=== PATIENT | female | born 1995 | race Two or more races ===

== ENCOUNTER 2024-10-16 19:54 | Emergency (ER) | payer MEDICAID, OTHER ==
[~2024-10-16] VITALS: Ht 149.9 cm; Wt 125.0 kg
--- NOTE | 2024-10-16 20:14 | ED.PDOC ---
Psychiatric HPI Comments 29-year-old female came to ER due to overdose. About 2 hours ago, patient had an argument with her boyfriend and she started drinking 10 buzz balls and snorted about 3 grams of cocaine. She denies being suicidal. States she was just very upset. She does have history of suicide attempt via cutting. Patient currently having abdominal pain with episodes of nausea and vomiting Chief Complaint: Overdose Time Seen by MD: 20:14 Reviewed Notes: Nurses Notes Information Source: Patient Mode of Arrival: Ambulatory Severity: Unable to Care for Self, Unable to Control Self Timing: Hours Duration: Since onset Presents with: Anxiety, Unclear Thinking, Suicidal Ideation Attempt: Ingestion Ingestion: Intentional, Drug(s) Ingested (Cocaine), ETOH Circumstance: Medical Clearance, Causing a Disturbance Current substance abuse: ETOH, Cocaine Stressors: Relationships History of: Suicidal Attempt, Alcoholism Quality: Hopelessness Associated signs and symptoms: Depression, Hopeless, Anxiety, ETOH, Cocaine Past Medical History Past Medical History (Other): Suicide attempt via cutting Surgical History: Denies all surgeries [employer]ATION History: Denies all [employer] Hx Family History Family History: Reviewed,noncontributory to illness Social History Smoker: Non-Smoker Alcohol: Heavy Drugs: Cocaine Lives In: Home Constitutional: denies: chills, diaphoresis, fatigue, fever, malaise, sweats, weakness, others EENTM: denies: blurred vision, double vision, ear bleeding, ear discharge, ear drainage, ear pain, ear ringing, eye pain, eye redness, hearing loss, mouth pain, mouth swelling, nasal discharge, nose bleeding, nose congestion, nose pain, photophobia, tearing, throat pain, throat swelling, voice changes, others Respiratory: denies: cough, hemoptysis, orthopnea, SOB at rest, shortness of breath, SOB with excertion, stridor, wheezing, others Cardiovascular: denies: chest pain, dizzy spells, diaphoresis, Dyspnea on exertion, edema, irregular heart beat, left arm pain, lightheadedness, palpitations, PND, syncope, others Gastrointestinal: reports: abdominal pain, nausea, vomiting; denies: abdomen distended, blood streaked bowels, constipated, diarrhea, dysphagia, difficulty swallowing, hematemesis, melena, poor appetite, poor fluid intake, rectal bleeding, rectal pain, others Genitourinary: denies: abnormal vagina bleeding, burning, dyspareunia, dysuria, flank pain, frequency, hematuria, incontinence, pain, , vagina discharge, urgency, others Neurological: denies: dizziness, fainting, headache, left sided numbness, left sided weakness, numbness, paresthesia, pre-existing deficit, right sided numbness, right sided weakness, seizure, speech problems, tingling, tremors, weakness, others Musculoskeletal: denies: back pain, gout, joint pain, joint swelling, muscle pain, muscle stiffness, neck pain, others Integumetry: denies: bruises, change in color, change in hair/nails, dryness, laceration, lesions, lumps, rash, wounds, others Allergic/Immunocompromised: denies: Difficulty Healing, Frequent Infections, Hives, Itching, others Hematologic/Lymphatic: denies: anemia, blood clots, easy bleeding, easy bruising, swollen glands, others Endocrine: denies: excessive hunger, excessive sweating, excessive thirst, excessive urination, flushing, intolerance to cold, intolerance to heat, unexplained weight gain, unexplained weight loss, others Psychiatric: reports: anxiety; denies: bipolar disorder, depression, hopeless, panic disorder, schizophrenia, sleepless, suicidal, others Physical Exam General Appearance: No Apparent Distress, Normal HEENT: Normal ENT Inspection, Pharynx Normal, TMs Normal Neck: Full Range of Motion, Non-Tender, Normal, Normal Inspection Respiratory: Chest Non-Tender, Lungs Clear, No Accessory Muscle Use, No Re spiratory Distress, Normal Breath Sounds Cardiovascular: No Edema, No JVD, No Murmur, No Gallop, Normal Peripheral Pulses, Regular Rate/Rhythm Breast Exam: Deferred Gastrointestinal: No Organomegaly, Non Tender, No Pulsatile Mass, Normal Bowel Sounds, Soft Genitalia: Deferred Pelvic: Deferred Rectal: Deferred Extremities: No calf tenderness, Normal capillary refill, Normal inspection, Normal range of motion, Non-tender, No pedal edema Musculoskeletal : Apperance: Normal Neurologic: Alert, gym teacher II-XII nml as Tested, No Motor Deficits, Normal Affect, Normal Mood, No Sensory Deficits Cerebellar Function: Normal Reflexes: Normal Skin: Dry, Normal Color, Warm Lymphatic: No Adenopathy Was a procedure done? Was a procedure done?: No Psych Differential Dx OD Differential Dx: Alcohol Abuse, Anxiety, Depression, Drug Overdose, Intentional, Substance Abuse, Suicidal Gesture X-Ray, Labs, Meds, VS Vital Signs Date Time Temp Pulse Resp B/P (MAP) Pulse Ox O2 Delivery O2 Flow Rate FiO2 10/17/24 02:34 97.7 88 16 139/89 (106) 98 97.7 10/16/24 20:46 110 20 95 Room Air* 0 21 10/16/24 19:57 97.3 106 24 149/85 (106) 96 Lab Test 10/17/24 04:20 10/16/24 20:16 Range/Units Urine Color Colorless Yellow Urine Clarity Turbid H Clear Urine pH 6.0 5.0-9.0 Urine Specific [place] 1.014 1.001-1.035 Urine Protein Trace H Negative Urine Ketones Negative Negative Urine Blood 3+ H Negative /uL Urine Nitrite Negative Negative Urine Bilirubin Negative Negative Urine Urobilinogen Normal Negative mg/dL Urine Leukocyte Esterase Trace Negative /uL Urine RBC 588 0 - 4 /hpf Urine Microscopic WBC 23 H 0-5 /HPF Urine Squamous Epithelial Cells Few <5 /hpf Urine Bacteria None seen None Seen /hpf Urine Mucus Few None Seen Urine Glucose 1+ H Normal mg/dL Urine Test Negative Negative Urine Opiates Screen Neg NEGATIVE Urine Fentanyl Screen Neg NEGATIVE Urine Barbiturates Screen Neg NEGATIVE Urine Phencyclidine Screen Neg NEGATIVE Urine Amphetamines Screen Neg NEGATIVE Urine Benzodiazepines Screen Neg NEGATIVE Urine Cocaine Screen Pos NEGATIVE Urine Cannabinoids Screen Neg NEGATIVE White Blood Count 10.2 4.4-10.8 10^3/uL Red Blood Count 5.22 H 4.0-5.20 10^6/uL Hemoglobin 15.6 12.2-16.2 g/dL Hematocrit 46.3 H 36.0-46.0 % Mean Corpuscular Volume 88.6 80.0-100.0 fL Mean Corpuscular Hemoglobin 29.8 28.0-32.0 pg Mean Corpuscular Hemoglobin Concent 33.7 32.0-36.0 g/dL Red Cell Distribution Width 13.9 11.8-14.3 % Platelet Count 355 140-450 10^3/uL Mean Platelet Volume 8.2 6.9-10.8 fL Neutrophils (%) (Auto) 65.1 37.0-80.0 % Lymphocytes (%) (Auto) 28.4 10.0-50.0 % Monocytes (%) (Auto) 3.9 0.0-12.0 % Eosinophils (%) (Auto) 1.8 0.0-7.0 % Basophils (%) (Auto) 0.8 0.0-2.0 % Neutrophils # (Auto) 6.7 1.6-8.6 10 ^3/uL Lymphocytes # (Auto) 2.9 0.4-5.4 10 ^3/uL Monocytes # (Auto) 0.4 0-1.3 10 ^3/uL Eosinophils # (Auto) 0.2 0-0.8 10 ^3/uL Basophils # (Auto) 0.1 0-0.2 10 ^3/uL Nucleated Red Blood Cells 0.2 % Sodium Level 144 136-145 mmol/L Potassium Level 3.7 3.5-5.1 mmol/L Chloride Level 105 98-107 mmol/L Carbon Dioxide Level 30 20-31 mmol/L Anion Gap 9 5-15 Blood Urea Nitrogen 5 L 9-23 mg/dL Creatinine 0.80 0.550-1.02 mg/dL Glomerular Filtration Rate Calc 102 >90 mL/min BUN/Creatinine Ratio 6.3 L 10.0-20.0 Serum Glucose 180 H 74-106 mg/dL Calcium Level 9.6 8.7-10.4 mg/dL Magnesium Level 2.4 1.6-2.6 mg/dL Salicylates Level < 3.0 -30 mg/dL Acetaminophen Level < 2.0 L 10.0-20.0 UG/ML Plasma/Serum Blood Alcohol 297.9 H <10 mg/dL Current Medications Medications (Trade) Dose Ordered Sig/Homero Route Start Time Stop Time Status Last Admin Sodium Chloride 1,000 ml @ 1,000 mls/hr Q1H ONCE IV 10/16/24 21:15 10/16/24 22:14 DC 10/16/24 21:09 Ondansetron HCl (Zofran) 4 mg ONCE ONCE IV 10/16/24 21:15 10/16/24 21:16 DC 10/16/24 21:10 Ondansetron HCl (Zofran) 4 mg ONCE ONCE IV 10/17/24 02:34 10/17/24 02:35 DC 10/17/24 02:41 Acetaminophen (Ofirmev) 1,000 mg ONCE ONCE IV 10/17/24 04:45 10/17/24 04:46 DC 10/17/24 04:55 X-Ray, Labs, Meds, VS Comment Course in the emergency department eventful patient was admitted last night because of ETOH CBC normal Urine shows 3+ blood negative UDS positive for cocaine and blood alcohol is 297.9 CC salicylates and acetaminophen level normal values BNP blood sugar is 180 and magnesium 2.4 the patient is much better to day She is signing out AMA Time of 1ST Reevaluation: 20:04 Reevaluation 1ST: Unchanged Patient Education/Counseling: Diagnosis, Treatment Family Education/Counseling: No Family Present Departure 1 Departure Time of Disposition: 08:30 Impression: Primary Impression: Cocaine abuse Additional Impressions: ETOH abuse Hyperglycemia Disposition: 07 LEFT AGAINST MEDICAL ADVICE Condition: Fair Discharged With: Self, Relative Critical Care Note Critical Care Time?: No Stability Stability form required: No Heart Score Heart Score: Heart Score Response (Comments) Value History N/A 0 EKG N/A 0 Age <45 0 Risk Factors No known risk factors 0 Troponin N/A 0 Total 0 I personally scribed for EDEN ANSARI MD ([email or web address]) on 10/16/24 at 20:14. Electronically submitted by Nathan Murillo ([email or web address]). EDEN ANSARI MD Oct 16, 2024 20:14 ANJANA CHAVEZ MD Oct 17, 2024 08:32
[2024-10-16 20:37] LABS: Basophils # (auto) 0.1 10 ^3/uL (0-0.2); Basophils % (auto) 0.8 % (0.0-2.0); Eosinophils # (auto) 0.2 10 ^3/uL (0-0.8); Eosinophils % (auto) 1.8 % (0.0-7.0); Hematocrit 46.3 % (36.0-46.0); Hemoglobin 15.6 g/dL (12.2-16.2); Lymphocytes # (auto) 2.9 10 ^3/uL (0.4-5.4); Lymphocytes % (auto) 28.4 % (10.0-50.0); Mean Corpuscular Hemoglobin 29.8 pg (28.0-32.0); Mean Corpuscular Hgb Conc. 33.7 g/dL (32.0-36.0); Mean Corpuscular Volume 88.6 fL (80.0-100.0); Monocytes # (auto) 0.4 10 ^3/uL (0-1.3); Monocytes % (auto) 3.9 % (0.0-12.0); Neutrophils # (auto) 6.7 10 ^3/uL (1.6-8.6); Neutrophils % (auto) 65.1 % (37.0-80.0); Nucleated Red Blood Cells % 0.2 %; Platelet Count (auto) 355 10^3/uL (140-450); Red Blood Cells 5.22 10^6/uL (4.0-5.20); Red Cell Distribution Width 13.9 % (11.8-14.3); White Blood Cell 10.2 10^3/uL (4.4-10.8)
[2024-10-16 20:44] LABS: Chloride 105 mmol/L (98-107); Potassium 3.7 mmol/L (3.5-5.1); Sodium 144 mmol/L (136-145)
[2024-10-16 20:45] LABS: Anion Gap 9 (5-15); Calcium 9.6 mg/dL (8.7-10.4); Carbon Dioxide 30 mmol/L (20-31)
[2024-10-16 20:46] VITALS: PULSE 110; RESP 20; O2SAT 95
[2024-10-16 20:50] LABS: BUN/Creatinine Ratio 6.3 (10.0-20.0)
[2024-10-16] MEDS: SODIUM CHLORIDE 0.9% 1,000 ML IV ONE (21:09)
[2024-10-16] MEDS: ONDANSETRON HCL 4 MG/2 ML VIAL IV ONE (21:10)
[2024-10-16 21:17] LABS: Blood Alcohol 297.9 mg/dL (<10); Blood Urea Nitrogen 5 mg/dL (9-23); Glucose 180 mg/dL (74-106)
[2024-10-16] MEDS: traMADol HCL 50 MG TAB PO ONE (21:39)
[2024-10-16 21:50] LABS: Acetaminophen < 2.0 UG/ML (10.0-20.0); Salicylate < 3.0 mg/dL (-30)
[2024-10-17 02:34] VITALS: TEMP 97.7; O2SAT 98
[2024-10-17] MEDS: ONDANSETRON HCL 4 MG/2 ML VIAL IV ONE (02:41)
[2024-10-17 04:21] LABS: Urine Bacteria None Seen /hpf (None Seen)
[2024-10-17 04:37] LABS: Urine Blood 3+ /uL (Negative); Urine Clarity Turbid (Clear); Urine Color Colorless (Yellow); Urine Mucus FEW (None Seen); Urine Protein, UAD TRACE (Negative); Urine Specific Gravity 1.014 (1.001-1.035); Urine Squamous Epithelial Cell FEW /hpf (<5); Urine Urobilinogen Normal (Negative); Urine WBC 23 /HPF (0-5)
[2024-10-17 04:46] LABS: Amphetamine Screen, Urine Neg (NEGATIVE); Barbiturate Scree,Urine Neg (NEGATIVE); Opiate Scree,Urine Neg (NEGATIVE); Phencyclidine Screen, Urine Neg (NEGATIVE)
[2024-10-17 04:47] LABS: Benzodiazephine Screen, Urine Neg (NEGATIVE); Cannabinoid Screen, Urine Neg (NEGATIVE); Cocaine Screen, Urine Pos (NEGATIVE)
[2024-10-17] MEDS: ACETAMINOPHEN IV 1000 MG/100ML (10MG/ML) IV ONE (04:55)
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
[2024-10-17 09:41] VITALS: BP 125/0; PULSE 75; RESP 16
== END 2024-10-17 09:41 | disposition left against medical advice (07) ==
LOC: ER 19:54
DX: F14.10 Cocaine abuse, uncomplicated (principal); F10.10 Alcohol abuse, uncomplicated; R73.9 Hyperglycemia, unspecified; R11.2 Nausea with vomiting, unspecified; Z79.899 Other long term (current) drug therapy; Y90.8 Blood alcohol level of 240 mg/100 ml or more
CPT/HCPCS: 36415; 80048; 80307; 80320; 80329; 81001; 81025; 83735; 85025; 96361; 96374; 96375; 96376; 99284; J2405; J7030; J0131